=== PATIENT | male | born 1945 | race African-American/Black ===

== ENCOUNTER 2016-12-31 11:30 | Inpatient (IN) | payer MEDICARE, MEDICAID ==
[~2016-12-31] VITALS: Ht 190.5 cm; Wt 78.9 kg
--- NOTE | 2016-12-31 11:35 | NUR ---
Perri from PMD's office dt right hip pain sp fall yesrteday. Patient arrived, aao3, appears in no acuute distress, respiration even and unlabored. Denies chest pain. Complaints of right hip pain, 5/10, worst during movement. Patient with rcw hd cath. Skin is warm to touch and non diaphoretic. Afebrile. vss.Gowned pt and placed on tele monitor.
[2016-12-31] MEDS ORDERED: CLON0.1T PO (11:43)
[2016-12-31] MEDS ORDERED: LEVO150T8 PO (11:43)
[2016-12-31] MEDS ORDERED: DOCU-270 PO (11:43)
[2016-12-31] MEDS ORDERED: LEVE250T2 PO (11:43)
[2016-12-31] MEDS ORDERED: CALC667C6 PO (11:43)
[2016-12-31] MEDS ORDERED: FOLI1TAB16 PO (11:43)
[2016-12-31] MEDS ORDERED: CALC0.253 PO (11:43)
[2016-12-31] MEDS ORDERED: COMBIVENT RESPIMAT INH (11:43)
[2016-12-31] MEDS ORDERED: TAMS0.4C34 PO (11:43)
[2016-12-31] MEDS ORDERED: ATOR10TA PO (11:43)
--- NOTE | 2016-12-31 11:47 | NUR ---
md Faye at bedside
[2016-12-31] MEDS ORDERED: MORPHINE SULFATE INJ 2 MG/ML DISP.SYRIN IV ONE (12:00)
[2016-12-31 12:01] LABS: BASOPHILS # (AUTO) 0.2 /CMM (0.0-0.2); BASOPHILS % (AUTO) 3.4 % (0.0-2.0); EOSINOPHILS # (AUTO) 0.1 /CMM (0.0-0.7); EOSINOPHILS % (AUTO) 1.9 % (0.0-6.0); HEMATOCRIT 39 % (39-51); HEMOGLOBIN 11.8 g/dL (13.5-17.5); LYMPHOCYTES # (AUTO) 1.3 /CMM (0.8-4.8); LYMPHOCYTES % (AUTO) 22.4 % (20.0-44.0); MEAN CORPUSCULAR HEMOGLOBIN 25 PG (26.0-33.0); MEAN CORPUSCULAR HGB CONC 30 g/dl (31.0-36.0); MEAN CORPUSCULAR VOLUME 84 fL (80-96); MONOCYTES # (AUTO) 0.7 /CMM (0.1-1.30); MONOCYTES % (AUTO) 12.4 % (2.0-12.0); NEUTROPHILS # (AUTO) 3.7 /CMM (1.8-8.9); NEUTROPHILS % (AUTO) 59.9 % (43.0-81.0); PLATELET COUNT (AUTO) 214 /CMM (150-450); RDW COEFFICIENT OF VARIATION 19.4 (11.5-15.0); RED BLOOD CELL COUNT(AUTO) 4.68 MIL/uL (4.5-6.0)
[2016-12-31] MEDS ORDERED: MORPHINE SULFATE INJ 2 MG/ML DISP.SYRIN ONE (12:05)
--- NOTE | 2016-12-31 12:10 | NUR ---
meteorological technician at bs
[2016-12-31 12:24] LABS: CALCIUM, SERUM 8.7 mg/dL (8.5-10.1); CREATININE 4.8 mg/dL (0.6-1.3)
[2016-12-31 12:29] LABS: INR 1.15 (0.87-1.13); PROTHROMBIN TIME 12.1 SECS (9.5-12.7)
[2016-12-31 12:32] LABS: TROPONIN I 0.043 ng/mL (0.00-0.056)
[2016-12-31 12:35] LABS: ALBUMIN 2.4 g/dL (3.4-5.0); BILIRUBIN,DIRECT 0.2 mg/dL (0.0-0.2); BILIRUBIN,TOTAL 0.6 mg/dL (0.2-1.0); TOTAL PROTEIN, SERUM 7.7 g/dL (6.4-8.2)
--- NOTE | 2016-12-31 12:45 | NUR ---
PAGED DR HOLDER
--- NOTE | 2016-12-31 12:58 | NUR ---
patient was taken to ct
--- NOTE | 2016-12-31 13:28 | NUR ---
PAGED ORA REPORTING SPECIALIST ORTHO PA FOR CONSULT
--- NOTE | 2016-12-31 13:38 | NUR ---
Pt transferred to 3w, vss
[2016-12-31 14:00] VITALS: BP 125/90
--- NOTE | 2016-12-31 14:00 | NUR ---
MS RN NOTES RECEIVED PATIENT IN BED NO SOB OR ACUTE DISTRESS NOTED. SON AT BEDSIDE. ALERT ORIENTED X3. S/P FALL ON 12/30/2016 PATIENT WAS TAKEN TO MD OFFICE FOR EVALUATING FOR RIGHT HIP PAIN WAS TRANSFERRED TO [facility] FOR POSSIBLE FRACTURE. PATIENT ORIENTED TO ROOM. CALL LIGHT WITHIN REACH. BED IN LOW LOCKED POSITION. WILL CONTINUE TO MONITOR.
[2016-12-31] MEDS ORDERED: oxyCODONE/APAP (5/325 MG) 1 UDTAB TABLET PO PRN ×2 (14:30)
--- NOTE | 2016-12-31 14:30 | NUR ---
MS RN NOTES PATIENT SEEN AND EVALUATED BY XANDER CRUZ POSSIBLE HIP SURGERY FOR 01/02/2016.
[2016-12-31] MEDS: HYDROMORPHONE 1 MG/1 ML DISP.SYRIN IV PRN (14:59)
[2016-12-31 16:00] VITALS: BP 147/86
[2016-12-31] MEDS ORDERED: MAG HYDROX/AL HYDROX/SIMETH 30 ML UDC PO PRN (16:00)
[2016-12-31] MEDS ORDERED: HYDROCODONE/APAP 5/325MG 1 EACH TABLET PO PRN (16:00)
[2016-12-31] MEDS ORDERED: ONDANSETRON HCL/PF 4 MG/2 ML VIAL IVP PRN (16:00)
[2016-12-31] MEDS ORDERED: MAGNESIUM HYDROXIDE 30 ML UDC PO PRN (16:00)
[2016-12-31] MEDS ORDERED: ACETAMINOPHEN 325 MG TABLET PO PRN (16:00)
[2016-12-31] MEDS ORDERED: Z GUARD REMEDY 2 OZ OINT TP PRN (16:00)
[2016-12-31] MEDS ORDERED: MORPHINE SULFATE INJ 2 MG/ML DISP.SYRIN IM PRN (16:00)
[2016-12-31] MEDS ORDERED: ZOLPIDEM TARTRATE 5 MG TABLET PO PRN (16:00)
[2016-12-31] MEDS: PANTOPRAZOLE 40 MG TABLET.DR PO SCH (17:01)
[2016-12-31 17:30] LABS: ABG OXYGEN SATURATION 92.6 % (92.0-98.5); ABG PCO2 51.2 mmHg (35.0-45.0); ABG PH 7.346 (7.350-7.450); AaDO2 13.4 mmHg; COHb 2.1 % (0.5-1.5); MetHb 0.8 % (0.0-1.5); O2Hb 89.9 % (94.0-97.0); SITE, ABG Right Radial; VENT MODE, BG ROOM AIR
--- NOTE | 2016-12-31 18:57 | NUR ---
MS RN NOTES PATIENT IN BED RESTING NO SOB OR ACUTE DISTRESS NOTED. ALL DUE MEDICATIONS GIVEN. ALL NEEDS MET WILL ENDORSE TO PM SHIFT DAPHNE.
--- NOTE | 2016-12-31 19:10 | NUR ---
RN NOTE RECEIVED REPORT. PT AAOX3, NO C/O OF PAIN OR DISCOMFORT AT THIS TIME, BREATHING EVEN AND NON-LABORED ON ROOM AIR. NPO AT [place] FOR SURGERY TOMORROW- ORIF RIGHT HIP. L FA INTACT AND PATENT S/L. CALL LIGHT IN REACH, WILL CONT TO MONITOR.
[2016-12-31 20:00] VITALS: BP 117/83
--- NOTE | 2017-01-01 01:05 | NUR ---
RN NOTES RECEIVED ENDORSEMENT FROM BRANDON QUINONES. PATIENT ADMITTED WITH R HIP FRACTURE, AWAITING CARDIAC CLEARANCE FOR PROCEDURE TO BE PERFORMED C/O DR. OLOSN. PATIENT AT THIS TIME IS IN BED, SLEEPING COMFORTABLY, NO ACUTE DISTRESS OR DISCOMFORT OBSERVED, ON 2LPM OF O2 VIA NC, RESPIRATION IS EVEN AND UNLABORED WITH NO DISTRESS. SAFETY AND COMFORT ENSURED. CALL LIGHT IN REACH. CHART CHECK DONE, PATIENT WITH POLST IN CHART STATING CODE STATUS OF DNR/DNI. FOLLOWED UP AND INFORMED , [facility], ORDER FOR DNR/DNI CODE STATUS OBTAINED. NOTED AND CARRIED OUT, COSIGNED BY CARLOS ALBERTO, ALBERTO.
--- NOTE | 2017-01-01 05:40 | NUR ---
RN NOTES AM CARE RENDERED FOR THE PATIENT. PATIENT KEPT CLEAN AND DRY. PATIENT HANDLED WITH CARE AT ALL TIMES WITH CARE RENDERED. LOG-ROLL TECHNIQUE USED FOR PATIENT'S COMFORT. REST PERIODS PROVIDED DURING AM CARE PER PATIENT'S TOLERANCE WITH CARE. MEDICATED PATIENT FOR PAIN. SAFETY AND COMFORT ENSURED. BED IN LOW AND LOCKED POSITION. CALL LIGHT IN REACH. WILL MONITOR.
--- NOTE | 2017-01-01 06:37 | NUR ---
RN CLOSING NOTES PATIENT IN BED, RESTING COMFORTABLY, EASILY AROUSABLE WITH VERBAL AND TACTILE STIMULI. PAIN MEDICATION WITH GOOD EFFECT FOR THE PATIENT. LEFT A MESSAGE TO ANTHONY RAMSEY, WITH REGARDS TO THE CLARIFICATION OF THE PATIENT'S NPO STATUS AND SURGERY SCHEDULE. PATIENT STILL PENDING CARDIAC CLEARANCE, PATIENT NOT ON SURGERY LIST FOR TODAY AND PATIENT REQUESTING FOR DRINK AND FOOD. REINFORCED PATIENT THE NPO STATUS AND CURRENT PLAN OF CARE, PATIENT VERBALIZED UNDERSTANDING. AWAITING FOR RESPONSE. WILL ENDORSE ACCORDINGLY FOR CONTINUITY OF CARE.
--- NOTE | 2017-01-01 07:00 | NUR ---
RN NOTE RECEIVED REPORT. PT AAOX3, NO C/O OF PAIN OR DISCOMFORT AT THIS TIME, BREATHING EVEN AND NON-LABORED ON ROOM AIR. NPO AT [place] FOR SURGERY TOMORROW- ORIF RIGHT HIP. L FA INTACT AND PATENT S/L. CALL LIGHT IN REACH, WILL CONT TO MONITOR.
[2017-01-01 07:05] LABS: BASOPHILS % (AUTO) 0.5 % (0.0-2.0); CALCIUM, SERUM 8.2 mg/dL (8.5-10.1); CREATININE 5.3 mg/dL (0.6-1.3); EOSINOPHILS # (AUTO) 0.1 /CMM (0.0-0.7); HEMATOCRIT 35 % (39-51); HEMOGLOBIN 10.8 g/dL (13.5-17.5); LYMPHOCYTES # (AUTO) 1.5 /CMM (0.8-4.8); LYMPHOCYTES % (AUTO) 24.4 % (20.0-44.0); MAGNESIUM 1.6 mg/dL (1.8-2.4); MEAN CORPUSCULAR HEMOGLOBIN 26 PG (26.0-33.0); MEAN CORPUSCULAR HGB CONC 31 g/dl (31.0-36.0); MEAN CORPUSCULAR VOLUME 84 fL (80-96); MONOCYTES # (AUTO) 0.7 /CMM (0.1-1.30); MONOCYTES % (AUTO) 11.5 % (2.0-12.0); NEUTROPHILS # (AUTO) 3.9 /CMM (1.8-8.9); NEUTROPHILS % (AUTO) 61.6 % (43.0-81.0); PHOSPHORUS 5.2 mg/dL (2.5-4.9); PLATELET COUNT (AUTO) 223 /CMM (150-450); POTASSIUM 5.2 mmol/L (3.5-5.1); RDW COEFFICIENT OF VARIATION 19.9 (11.5-15.0); RED BLOOD CELL COUNT(AUTO) 4.12 MIL/uL (4.5-6.0); WHITE BLOOD COUNT (AUTO) 6.3 K/uL (4.3-11.0)
[2017-01-01 08:00] VITALS: BP 138/91
[2017-01-01] MEDS ORDERED: CALCITRIOL 0.25 MCG CAPSULE PO SCH (09:00)
[2017-01-01] MEDS ORDERED: CLONIDINE HCL 0.1 MG TABLET PO PRN (09:00)
[2017-01-01] MEDS: PANTOPRAZOLE 40 MG TABLET.DR PO SCH ×2 (09:11→10:08)
[2017-01-01] MEDS: TAMSULOSIN 0.4 MG CAP.SR.24H PO SCH (10:08)
[2017-01-01] MEDS: DOCUSATE SODIUM 100 MG CAPSULE PO SCH ×2 (10:08→17:00)
[2017-01-01] MEDS: ATORVASTATIN 10 MG TABLET PO SCH (10:08)
[2017-01-01] MEDS: FOLIC ACID 1 MG TABLET PO SCH (10:08)
[2017-01-01] MEDS ORDERED: IV SET PRIMARY PUMP SET 1 EA INFUS.SET MC ONE (10:11)
[2017-01-01] MEDS ORDERED: SECONDARY IV SET 1 EA INFUS.SET MC ONE (10:12)
[2017-01-01] MEDS: LEVOTHYROXINE SODIUM 75 MCG TABLET PO SCH (10:17)
[2017-01-01] MEDS ORDERED: IV NS 0.9% 250 ML IV ONE (10:17)
[2017-01-01] MEDS: Magnesium 1GM/D5W 100ML PREMIX 100 ML IV SCH ×2 (10:18→11:16)
[2017-01-01] MEDS: HYDROMORPHONE 1 MG/1 ML DISP.SYRIN IV PRN (10:49)
[2017-01-01] MEDS ORDERED: FENTANYL PF 100MCG/2ML AMPUL ONE (12:46)
[2017-01-01] MEDS: CALCIUM ACETATE 667 MG TABLET PO SCH ×2 (13:00→16:59)
[2017-01-01] MEDS ORDERED: BUPIVACAINE 0.5 % PF 150 MG/30 ML VIAL ONE (13:11)
[2017-01-01] MEDS ORDERED: BACITRACIN 50000 UNITS/VIAL ONE (13:12)
[2017-01-01] MEDS ORDERED: ANESTHESIA TRAY IN PYXIS 1 EA TRAY MC ONE (14:45)
[2017-01-01 15:56] VITALS: BP 92/66
[2017-01-01] MEDS: LEVETIRACETAM (250 MG) 250 MG TABLET PO SCH (16:59)
[2017-01-01] MEDS: IPRATROPIUM/ALBUTEROL INHALER IH SCH (17:00)
--- NOTE | 2017-01-01 18:52 | NUR ---
pt in stable condition,no c/o pain,no s.s of distress.no sudden changes noted.i.v site cdi and patent.all m.d orders noted.safety measures in place.bed in low and locked position.endorsed to oncoming shift for continuity of care.
--- NOTE | 2017-01-01 19:00 | NUR ---
MS RN OPENING NOTES RECEIVED PATIENT IN BED IN STABLE CONDITION, IV SITE INTACT WITH S/S OF INFILTRATION. NO S/S OF DISTRESS, NO S/S OF DISTRESS NO SOB, NO CHEST PAIN. NO COMPLAINS OF PAIN, SAFE FREE ENVIRONMENT PROVIDED FREE OF CLUTTERS, WILL CONTINUE TO MONITOR, ON LOW BED TO ENSURE SAFETY, CALL LIGHT WITHIN REACH.
[2017-01-01 20:00] VITALS: BP 92/56
[2017-01-01] MEDS: ANCEF 1 GM/50 ML D5W IV SCH ×2 (20:34)
[2017-01-02] MEDS: ANCEF 1 GM/50 ML D5W IV SCH ×4 (04:47→12:47)
--- NOTE | 2017-01-02 06:21 | NUR ---
MS RN CLOSING NOTES PATIENT COMFORTABLY IN BED ASLEEP AND EASILY AWAKEN, ALERT AND VERBALLY RESPONSIVE; DENIES ANY PAIN OR DISTRESS, ON ATB WITH NO A/R NOTED. IV SITE INTACT WITH NO S/S OF INFILTRATION. S/P R HIP SX, HEALTH EDUCATION PROVIDED RESPONDS APPROPRIATELY TO VERBAL STIMULI; RESPIRATIONS EVEN, UNLABORED BREATH SOUNDS, NO COMPLAINS OF CHEST PAIN, NO S/S OF DISTRESS NOTED, IN STABLE CONDITION NO COMPLAINS OF PAIN, DUE MEDS GIVEN, NO HEADACHE, NO NAUSEA, NO VOMITING, NO S/S OF BLEEDING NOTED. R HIP SX S/P 01/01/17 DRESSING INTACT DRESSING NOT SOILED. AFEBRILE, ALL NURSING CARE NEEDS PROVIDED AND RENDERED. KEPT CLEAN AND DRY AND COMFORTABLE. CONTINUE WITH CURRENT MEDICATION ORDERED. SAFE HAZARD FREE ENVIRONMENT MAINTAINED, BED KEPT AT LOW POSITION, CALL LIGHT WITHIN EASY TO REACH, WILL ENDORSE TO THE NEXT SHIFT CONTINUE PLAN OF CARE.
[2017-01-02 06:41] LABS: EOSINOPHILS # (AUTO) 0.1 /CMM (0.0-0.7); EOSINOPHILS % (AUTO) 1.4 % (0.0-6.0); HEMATOCRIT 30 % (39-51); HEMOGLOBIN 9.3 g/dL (13.5-17.5); LYMPHOCYTES # (AUTO) 0.5 /CMM (0.8-4.8); LYMPHOCYTES % (AUTO) 7.6 % (20.0-44.0); MEAN CORPUSCULAR HEMOGLOBIN 26 PG (26.0-33.0); MEAN CORPUSCULAR HGB CONC 31 g/dl (31.0-36.0); MEAN CORPUSCULAR VOLUME 85 fL (80-96); MONOCYTES # (AUTO) 0.9 /CMM (0.1-1.30); MONOCYTES % (AUTO) 14.6 % (2.0-12.0); NEUTROPHILS # (AUTO) 4.9 /CMM (1.8-8.9); NEUTROPHILS % (AUTO) 76.4 % (43.0-81.0); PLATELET COUNT (AUTO) 204 /CMM (150-450); RDW COEFFICIENT OF VARIATION 19.3 (11.5-15.0); RED BLOOD CELL COUNT(AUTO) 3.59 MIL/uL (4.5-6.0); WHITE BLOOD COUNT (AUTO) 6.4 K/uL (4.3-11.0)
[2017-01-02 07:05] LABS: ALBUMIN 2.1 g/dL (3.4-5.0); BILIRUBIN,TOTAL 0.5 mg/dL (0.2-1.0); CREATININE 4.4 mg/dL (0.6-1.3); MAGNESIUM 1.8 mg/dL (1.8-2.4); POTASSIUM 4.8 mmol/L (3.5-5.1); TOTAL PROTEIN, SERUM 6.9 g/dL (6.4-8.2)
--- NOTE | 2017-01-02 07:50 | NUR ---
AM RN NOTES RECEIVED PT IN STABLE CONDITION, AWAKE, NO PAIN OR DISCOMFORT NOTED, NO SOB OR DISTRESS WILL MONITOR.
[2017-01-02 08:00] VITALS: BP_SYST 179; BP_SYST 97; BP_DIAS 56; BP_DIAS 96
[2017-01-02] MEDS: CALCIUM ACETATE 667 MG TABLET PO SCH ×3 (08:17→17:04)
[2017-01-02] MEDS: ATORVASTATIN 10 MG TABLET PO SCH (08:17)
[2017-01-02] MEDS: DOCUSATE SODIUM 100 MG CAPSULE PO SCH ×2 (08:17→16:46)
[2017-01-02] MEDS: LEVOTHYROXINE SODIUM 75 MCG TABLET PO SCH (08:17)
[2017-01-02] MEDS: TAMSULOSIN 0.4 MG CAP.SR.24H PO SCH (08:18)
[2017-01-02] MEDS: LEVETIRACETAM (250 MG) 250 MG TABLET PO SCH (08:18)
[2017-01-02] MEDS: FOLIC ACID 1 MG TABLET PO SCH (08:18)
[2017-01-02] MEDS: IPRATROPIUM/ALBUTEROL INHALER IH SCH (08:19)
[2017-01-02 09:41] LABS: IRON, SERUM 28 ug/dl (50-175); TOTAL IRON BINDING CAPACITY 96 ug/dl (250-450)
[2017-01-02 09:54] LABS: FERRITIN 479 ng/mL (8-388)
--- NOTE | 2017-01-02 14:37 | NUR ---
PATIENT DID NOT WANT TO BE BOTHERED WITH US THYROID TODAY. PATIENT WANTS EXAM DONE TOMORROW 01/03/17
--- NOTE | 2017-01-02 17:00 | NUR ---
RN MS NOTES PHYSICAL THERAPIST CAME FOR EVALUATION BUT PATIENT REFUSED. EXPLAINED RISKS AND BENEFITS X3 AND STILL REFUSED.
[2017-01-02 17:09] VITALS: BP 144/93
--- NOTE | 2017-01-02 17:48 | NUR ---
RN MS NOTES PATIENT COMPLAINED OF RIGHT HIP PAIN 5/10, PERCOCET 1 TAB ADMINISTERED.
--- NOTE | 2017-01-02 18:23 | NUR ---
RN MS NOTES PATIENT IN BED WATCHING TV, ALERT AND ORIENTED X2, CONSUMED DINNER AND TOLERATED WELL, NO S/SX OF PAIN OR DISCOMFORT AT THIS TIME, NO DISTRESS NOTED, SAFETY MEASURES IN PLACED, CALL LIGHT WITHIN REACH, WILL ENDORSE TO OCEAN FREIGHT FORWARDER FOR DAPHNE.
[2017-01-02 19:00] VITALS: BP 100/64
--- NOTE | 2017-01-02 19:25 | NUR ---
MS/RN NOTES RECEIVED PT. LYING IN BED. AWAKE, ALERT AND ORIENTED X2. BREATHING EVEN AND UNLABORED ON 3LPM O2 VIA NC. NO SOB, RESPIRATORY DISTRESS OR COMPLAINTS OF PAIN NOTED AT THIS TIME. PT. WITH LEFT FOREARM 18 GAUGE SALINE LOCK PRESENT, PATENT AND INTACT. PT. WITH RIGHT HIP SURGICAL DRESSING PRESENT AND INTACT. SMALL AMOUNT OF DRAINAGE NOTED ON DRESSING. WILL CONTINUE TO MONITOR. BED IN LOWEST POSITION, CALL LIGHT WITHIN REACH, WILL CONTINUE TO MONITOR.
--- NOTE | 2017-01-02 21:06 | NUR ---
MS/RN NOTES PT. IN STABLE CONDITION. BREATHING EVEN AND UNLABORED ON 3LPM O2 VIA NC. REPORT GIVEN TO BRANDON ROGERS FOR CONTINUITY OF CARE.
[2017-01-03] MEDS: HEPARIN SODIUM, PORCINE 5000 UNITS/1 ML VIAL SQ SCH ×3 (00:57→21:48)
--- NOTE | 2017-01-03 06:43 | NUR ---
MS RN NOTES AWAKE & RESPONSIVE. NOT IN ANY DISTRESS. NO SOB NOTED. DENIES ANY PAIN OR DISCOMFORT AT THIS TIME. WITH IV-HL PATENT & INTACT. AM CARE DONE. MONITORED ACCORDINGLY. CALL LIGHT WITHIN REACH. BED IN LOWEST POSITION. SR UP X 2 FOR SAFETY. WILL ENDORSE TO NEXT SHIFT.
[2017-01-03 06:48] LABS: BASOPHILS % (AUTO) 0.8 % (0.0-2.0); EOSINOPHILS # (AUTO) 0.2 /CMM (0.0-0.7); EOSINOPHILS % (AUTO) 2.7 % (0.0-6.0); HEMATOCRIT 30 % (39-51); HEMOGLOBIN 9.5 g/dL (13.5-17.5); LYMPHOCYTES # (AUTO) 1.3 /CMM (0.8-4.8); LYMPHOCYTES % (AUTO) 22.5 % (20.0-44.0); MEAN CORPUSCULAR HEMOGLOBIN 26 PG (26.0-33.0); MEAN CORPUSCULAR HGB CONC 31 g/dl (31.0-36.0); MEAN CORPUSCULAR VOLUME 85 fL (80-96); MONOCYTES # (AUTO) 0.7 /CMM (0.1-1.30); MONOCYTES % (AUTO) 11.9 % (2.0-12.0); NEUTROPHILS # (AUTO) 3.7 /CMM (1.8-8.9); NEUTROPHILS % (AUTO) 62.1 % (43.0-81.0); PLATELET COUNT (AUTO) 184 /CMM (150-450); RDW COEFFICIENT OF VARIATION 18.9 (11.5-15.0)
[2017-01-03 07:10] LABS: ALBUMIN 2.2 g/dL (3.4-5.0); BILIRUBIN,TOTAL 0.4 mg/dL (0.2-1.0); MAGNESIUM 1.7 mg/dL (1.8-2.4); PHOSPHORUS 5.2 mg/dL (2.5-4.9); POTASSIUM 5.5 mmol/L (3.5-5.1); TOTAL PROTEIN, SERUM 6.9 g/dL (6.4-8.2)
--- NOTE | 2017-01-03 07:30 | NUR ---
PT RECEIVED RESTING COMFORTABLY IN BED. NO S/S OR C/O PAIN OR DISTRESS NOTED. SIDE RAILS UP X2, CALL LIGHT LEFT WITHIN REACH. WILL CONTINUE PLAN OF CARE.
[2017-01-03 08:00] VITALS: BP 120/89
[2017-01-03] MEDS ORDERED: SECONDARY IV SET 1 EA INFUS.SET MC ONE (08:18)
[2017-01-03] MEDS: CALCITRIOL 0.25 MCG CAPSULE PO SCH (08:24)
[2017-01-03] MEDS: Magnesium 1GM/D5W 100ML PREMIX 100 ML IV SCH ×2 (08:24→10:28)
[2017-01-03] MEDS: PANTOPRAZOLE 40 MG TABLET.DR PO SCH (08:25)
[2017-01-03] MEDS: LEVOTHYROXINE SODIUM 75 MCG TABLET PO SCH (08:25)
[2017-01-03] MEDS: TAMSULOSIN 0.4 MG CAP.SR.24H PO SCH (08:25)
[2017-01-03] MEDS: FOLIC ACID 1 MG TABLET PO SCH (08:25)
[2017-01-03] MEDS: ATORVASTATIN 10 MG TABLET PO SCH (08:25)
[2017-01-03] MEDS: LEVETIRACETAM (250 MG) 250 MG TABLET PO SCH (08:26)
[2017-01-03] MEDS: CALCIUM ACETATE 667 MG TABLET PO SCH ×3 (08:26→17:32)
[2017-01-03] MEDS: IPRATROPIUM/ALBUTEROL INHALER IH SCH (08:30)
[2017-01-03] MEDS: DOCUSATE SODIUM 100 MG CAPSULE PO SCH ×2 (08:37→17:00)
[2017-01-03] MEDS ORDERED: GUAIFENESIN/D-METHORPHAN HB 5 ML UDC PO PRN (11:30)
[2017-01-03 16:00] VITALS: BP 119/71
--- NOTE | 2017-01-03 18:27 | NUR ---
CHANGE OF SHIFT REPORT PT RESTING COMFORTABLY IN BED. NO S/S OR C/O PAIN OR DISTRESS NOTED. SIDE RAILS UP X2, CALL LIGHT LEFT WITHIN REACH. PT KEPT CLEAN, DRY, AND COMFORTABLE. NO SIGNIFICANT CHANGES SINCE PREVIOUS SHIFT. WILL GIVE REPORT TO NABILA TAYLOR.
--- NOTE | 2017-01-03 19:30 | NUR ---
MS RN INITIAL NOTE RECEIVED PT SLEEPING BUT EASILY AROUSED, ORIENTED X2-3, NO COMPLAINT OF PAIN OR RESPIRATORY DISTRESS DURING PHYSICAL ASSESSMENT, S/P RIGHT HIP SURGERY, ACCORDING TO AM NURSE, INCISION DRESSING CHANGED TODAY BY , TYROID U/S REVELED NO MASSES AND RIGHT LOWER EXTREMITY DOPPLER REVELED NO DVT, PT IS CLEAN/DRY AND COMFORTABLE, SAFETY MEASURES WILL BE MAINTAINED AT ALL TIMES, NEEDS WILL BE ANTICIPATED AND ATTENDED TO DURING HOURLY ROUNDS AND NEEDED.
[2017-01-03 20:00] VITALS: BP 107/80
--- NOTE | 2017-01-04 06:43 | NUR ---
MS RN CLOSING NOTE PT REMAINED STABLE DURING UNDERBASTER, NO SIGNIFICANT CHANGES NOTED, NO PAIN OR RESPIRATORY DISTRESS REPORTED BY PT, PT KEPT CLEAN/DRY AND COMFORTABLE, MEDICATION AND TREATMENTS PROVIDED ORDERED, ALL NEEDS ATTENDED TO DURING HOURLY ROUNDS, WILL ENDORSE TO INCOMING NURSE FOR DAPHNE.
[2017-01-04 06:49] VITALS: BP 107/80
--- NOTE | 2017-01-04 07:00 | NUR ---
OPENING NOTES RECEIVED REPORT FROM NIGHT NURSE. PT WAS SITTING UP IN BED WATCHING TV WITH BED IN LOWEST POSITION, CALL LIGHTS WITHIN REACH,TWO SIDE RAILS UP, NO SIGNS OF SOB OR DISTRESS. WILL ASSESS, MONITOR, AND IMPLEMENT PLAN OF CARE.
[2017-01-04 08:00] VITALS: BP 145/97
[2017-01-04] MEDS: DOCUSATE SODIUM 100 MG CAPSULE PO SCH ×2 (09:00→16:49)
[2017-01-04] MEDS: FOLIC ACID 1 MG TABLET PO SCH (09:05)
[2017-01-04] MEDS: LEVETIRACETAM (250 MG) 250 MG TABLET PO SCH (09:05)
[2017-01-04] MEDS: ATORVASTATIN 10 MG TABLET PO SCH (09:06)
[2017-01-04] MEDS: HEPARIN SODIUM, PORCINE 5000 UNITS/1 ML VIAL SQ SCH ×2 (09:07→21:15)
[2017-01-04] MEDS: PANTOPRAZOLE 40 MG TABLET.DR PO SCH (09:08)
[2017-01-04] MEDS: LEVOTHYROXINE SODIUM 75 MCG TABLET PO SCH (09:08)
[2017-01-04] MEDS: TAMSULOSIN 0.4 MG CAP.SR.24H PO SCH (09:19)
[2017-01-04] MEDS: CALCIUM ACETATE 667 MG TABLET PO SCH ×3 (09:21→17:53)
[2017-01-04] MEDS: IPRATROPIUM/ALBUTEROL INHALER IH SCH (09:23)
[2017-01-04 15:32] LABS: INR 1.12 (0.87-1.13); PROTHROMBIN TIME 12.1 SECS (9.5-12.7)
[2017-01-04 16:00] VITALS: BP_SYST 141; BP_DIAS 41; BP_DIAS 90
--- NOTE | 2017-01-04 18:59 | NUR ---
NURSE CLOSING NOTES PATIENT IS ABOUT TO RECEIVED BREAK THROUGH PAIN MED. PATIENT IS SITTING IN BED IN LOWEST POSITION, CALL LIGHT WITHIN REACH AND PATIENT WOULD LIKE TO USE CPM MACHINE SOON. GAVE REPORT TO NIGHT NURSE WITH THE LATEST PAIN MEDS GIVEN Addendum: 01/04/17 at 1914 by TERESA ESTRELLA RN WRONG PATIENT
--- NOTE | 2017-01-04 19:15 | NUR ---
RN NOTE RECEIVED REPORT. PT AWAKE AND ALERT, CONFUSED AND AGITATED. NO C/O OF PAIN OR DISCOMFORT AT THIS TIME, BREATHING EVEN AND NO-LABORED. RIGHT HIP DRESSING INTACT , NO SIGNS OF BLEEDING. IV INTACT AND PATENT, NO FLUIDS. CALL LIGHT IN REACH WILL CONT TO MONITOR.
[2017-01-04 20:00] VITALS: BP 136/80
--- NOTE | 2017-01-05 01:02 | NUR ---
RN NOTE PT RESTING IN BED WITH EYES CLOSED. NO S/S OF ANY DISTRESS. WILL CONT TO MONITOR.
--- NOTE | 2017-01-05 06:51 | NUR ---
RN NOTE NO SIGNIFICANT CHANGES THIS SHIFT. PT AWAKE AND ALERT, AGITATED AT TIMES. NO S/S OF ANY DISTRESS AT THIS TIME, BREATHING NON-LABORED AND EVEN. R HIP DRESSING INTACT, NO BLEEDING. IV INTACT AND PATENT S/L. PT TO GO FOR DIALYSIS AND PARACENTESIS TODAY. ALL NEEDS ATTENDED TO, WILL F/U WITH DAY SHIFT FOR DAPHNE.
[2017-01-05 07:16] LABS: BASOPHILS # (AUTO) 0.1 /CMM (0.0-0.2); EOSINOPHILS # (AUTO) 0.3 /CMM (0.0-0.7); EOSINOPHILS % (AUTO) 5.1 % (0.0-6.0); HEMATOCRIT 32 % (39-51); LYMPHOCYTES # (AUTO) 1.3 /CMM (0.8-4.8); LYMPHOCYTES % (AUTO) 23.4 % (20.0-44.0); MEAN CORPUSCULAR HEMOGLOBIN 26 PG (26.0-33.0); MEAN CORPUSCULAR HGB CONC 31 g/dl (31.0-36.0); MEAN CORPUSCULAR VOLUME 84 fL (80-96); MONOCYTES # (AUTO) 0.7 /CMM (0.1-1.30); MONOCYTES % (AUTO) 12.2 % (2.0-12.0); NEUTROPHILS # (AUTO) 3.2 /CMM (1.8-8.9); NEUTROPHILS % (AUTO) 58.3 % (43.0-81.0); PLATELET COUNT (AUTO) 204 /CMM (150-450); RDW COEFFICIENT OF VARIATION 18.6 (11.5-15.0); WHITE BLOOD COUNT (AUTO) 5.5 K/uL (4.3-11.0)
[2017-01-05 07:31] LABS: CALCIUM, SERUM 7.9 mg/dL (8.5-10.1); CREATININE 5.4 mg/dL (0.6-1.3); MAGNESIUM 1.8 mg/dL (1.8-2.4); PHOSPHORUS 4.9 mg/dL (2.5-4.9); POTASSIUM 5.3 mmol/L (3.5-5.1)
--- NOTE | 2017-01-05 08:00 | NUR ---
MS RN RECEIVED ON BED, CONFUSE,NOT IN ANY FORM OF DISTRESS,RESPIRATIONS EVEN AND UNLABORED,NO SOB NOTED, LUNGS ARE DIMINISHED,ABDOMEN SOFT,POSITIVE BOWEL SOUNDS, DENIES PAIN AT THIS TIME, WILL MONITOR PATIENT'S CONDITION.
--- NOTE | 2017-01-05 08:30 | NUR ---
MS TAYLOR BREAKFAST SERVD,DUE MEDS GIVEN,TOLERATED WELL.
[2017-01-05] MEDS: HEPARIN SODIUM, PORCINE 5000 UNITS/1 ML VIAL SQ SCH (09:00)
[2017-01-05] MEDS: ATORVASTATIN 10 MG TABLET PO SCH (09:26)
[2017-01-05] MEDS: LEVETIRACETAM (250 MG) 250 MG TABLET PO SCH (09:26)
[2017-01-05] MEDS: LEVOTHYROXINE SODIUM 75 MCG TABLET PO SCH (09:26)
[2017-01-05] MEDS: CALCIUM ACETATE 667 MG TABLET PO SCH ×2 (09:26→12:47)
[2017-01-05] MEDS: TAMSULOSIN 0.4 MG CAP.SR.24H PO SCH (09:26)
[2017-01-05] MEDS: DOCUSATE SODIUM 100 MG CAPSULE PO SCH (09:26)
[2017-01-05] MEDS: FOLIC ACID 1 MG TABLET PO SCH (09:27)
[2017-01-05] MEDS: PANTOPRAZOLE 40 MG TABLET.DR PO SCH (09:27)
[2017-01-05] MEDS: CALCITRIOL 0.25 MCG CAPSULE PO SCH (09:27)
--- NOTE | 2017-01-05 12:30 | NUR ---
MS ECHO VASCULAR TECH DONE, TOLERATED WELL.
[2017-01-05] MEDS: IPRATROPIUM/ALBUTEROL INHALER IH SCH (12:47)
--- NOTE | 2017-01-05 13:20 | NUR ---
MS RN PARACENTHESIS DONE, TOOK OFF 5 LITERS, TOLERATED WELL.
[2017-01-05 16:00] VITALS: BP 109/74
--- NOTE | 2017-01-05 16:00 | NUR ---
MS RN PATIENT TO B DISCHARGE TODAY TO [facility].
--- NOTE | 2017-01-05 16:10 | NUR ---
MS RN PATIENT REFUSED TO CHANGE DRESSING/OPEN SURGICAL SITE, NO S/S OF BLEEDING, DENIES PAIN AT THIS TIME.
--- NOTE | 2017-01-05 16:35 | NUR ---
MS RN PATIENT DISCHARGE TO [facility], REPORT GIVEN TO ROLANDA TAYLOR,ALL NEEDS ATTENDED.
== END 2017-01-05 16:45 | DRG 956 ==
LOC: ER 11:33 → MED 13:33
PROVIDERS: ADMIT Internal Medicine; ATTEND Internal Medicine
PROC: 5A1D60Z (ICD-10-PCS; 2017-01-01)
PROC: 0QS604Z Reposition Right Upper Femur with Internal Fixation Device, Open Approach (ICD-10-PCS; principal; 2017-01-01 13:00)
DX: S72.011A Unspecified intracapsular fracture of right femur, initial encounter for closed fracture (principal); S32.591A Other specified fracture of right pubis, initial encounter for closed fracture; N18.6 End stage renal disease; S32.401A Unspecified fracture of right acetabulum, initial encounter for closed fracture; I13.2 Hypertensive heart and chronic kidney disease with heart failure and with stage 5 chronic kidney disease, or end stage renal disease; D68.59 Other primary thrombophilia; I50.32 Chronic diastolic (congestive) heart failure; R18.8 Other ascites; W18.30XA Fall on same level, unspecified, initial encounter; Y92.002 Bathroom of unspecified non-institutional (private) residence as the place of occurrence of the external cause; Z99.2 Dependence on renal dialysis; E87.5 Hyperkalemia; E83.42 Hypomagnesemia; I48.91 Unspecified atrial fibrillation; F03.90 Unspecified dementia, unspecified severity, without behavioral disturbance, psychotic disturbance, mood disturbance, and anxiety; J44.9 Chronic obstructive pulmonary disease, unspecified; M81.0 Age-related osteoporosis without current pathological fracture; E04.9 Nontoxic goiter, unspecified; E03.9 Hypothyroidism, unspecified; D64.9 Anemia, unspecified; M16.0 Bilateral primary osteoarthritis of hip; M46.96 Unspecified inflammatory spondylopathy, lumbar region
CPT/HCPCS: 36415; 36600; 71010-TC; 72192-TC; 73501; 73510-TC; 76536-TC; 76942-TC; 80048-TC; 80053-TC; 80061-TC; 80076-TC; 82728-TC; 83540-TC; 83735-TC; 84100-TC; 84484-TC; 85025-TC; 85610-TC; 85730-TC; 86850-TC; 87081-TC; 90935-TC; 93307-TC; 93971-TC; 94799-TC; 97001-TC; 97110-TC; 97530-TC; A4606; A6209; A6402; C1713; J0690; J1170; J1644; J1885; J2270; J2310; J2370; J2405; J2704; J3010; J3475; J3490; J7050; J7060; Z7610